=== PATIENT | female | born 2000 | race Hispanic/Latino ===

== ENCOUNTER 2022-11-07 17:06 | Emergency (ER) | payer OTHER ==
[~2022-11-07] VITALS: Ht 157.5 cm; Wt 76.6 kg
[2022-11-07 18:00] LABS: BASO % 0.4 % (0.0-1.0); EOS # 0.1 10^3/uL (0.0-0.5); EOS % 1.2 % (0.0-3.0); HEMATOCRIT 40.1 % (36.0-47.0); HEMOGLOBIN 13.3 g/dl (12.0-15.5); LYMPH # 1.3 10^3/uL (1.5-5.0); LYMPH % 16.9 % (24.0-44.0); MEAN CORPUSCULAR HEMOGLOBIN 28.1 pg (27.0-33.0); MEAN CORPUSCULAR HGB CONC 33.2 g/dl (32.0-36.5); MEAN CORPUSCULAR VOLUME 84.6 fl (80.0-96.0); MONO # 0.8 10^3/uL (0.0-0.8); NEUTROPHILS # 5.5 10^3/uL (1.5-8.5); NEUTROPHILS % 71.2 % (36.0-66.0); PLATELET COUNT, AUTOMATED 225 10^3/uL (150-450); RED BLOOD COUNT 4.74 10^6/uL (4.00-5.40); WHITE BLOOD COUNT 7.7 10^3/uL (4.0-10.0)
[2022-11-07 18:05] LABS: BLOOD UREA NITROGEN 14 MG/DL (9-23); CALCIUM LEVEL 9.1 MG/DL (8.5-10.1); CARBON DIOXIDE LEVEL 27 MMOL/L (20-31); CHLORIDE LEVEL 106 MMOL/L (98-107); CREATININE FOR GFR 0.76 MG/DL (0.55-1.30); GLOMERULAR FILTRATION RATE > 60.0 (>60); GLUCOSE, FASTING 88 MG/DL (60-100); POTASSIUM SERUM 4.1 MMOL/L (3.5-5.1); SODIUM LEVEL 137 MMOL/L (136-145)
[2022-11-07 18:21] LABS: HCG, SERUM QUANTITATIVE 2318.2 MIU/ML (<4.2)
[2022-11-07 21:31] VITALS: BP 118/70
== END 2022-11-07 21:37 | disposition home or self-care (01) ==
LOC: M ED 17:06
DX: O26.899 Other specified pregnancy related conditions, unspecified trimester (principal); R10.9 Unspecified abdominal pain; Z3A.01 Less than 8 weeks gestation of pregnancy

== ENCOUNTER → 2022-11-09 | Outpatient (CLI) | payer OTHER | LOC: M LAB 09:23 | PROVIDERS: ATTEND Physician Assistant | DX: O26.899 Other specified pregnancy related conditions, unspecified trimester (principal); R10.9 Unspecified abdominal pain ==

== ENCOUNTER 2023-01-10 18:24 | Emergency (ER) | payer OTHER ==
[~2023-01-10] VITALS: Ht 157.5 cm; Wt 73.6 kg
[2023-01-10 18:26] VITALS: BP 113/68; TEMP 99; O2SAT 97
[2023-01-10] MEDS ORDERED: MULTTAB20 PO (18:42)
[2023-01-10] MEDS ORDERED: ESSE250T PO (18:43)
[2023-01-10 19:58] LABS: BASO % 0.1 % (0.0-1.0); EOS # 0.1 10^3/uL (0.0-0.5); HEMATOCRIT 35.1 % (36.0-47.0); HEMOGLOBIN 12.2 g/dl (12.0-15.5); LYMPH # 1.3 10^3/uL (1.5-5.0); LYMPH % 17.1 % (24.0-44.0); MEAN CORPUSCULAR HEMOGLOBIN 28.8 pg (27.0-33.0); MEAN CORPUSCULAR HGB CONC 34.8 g/dl (32.0-36.5); MEAN CORPUSCULAR VOLUME 82.8 fl (80.0-96.0); MONO # 0.5 10^3/uL (0.0-0.8); MONO % 6.5 % (2.0-8.0); NEUTROPHILS # 5.7 10^3/uL (1.5-8.5); NEUTROPHILS % 74.9 % (36.0-66.0); PLATELET COUNT, AUTOMATED 230 10^3/uL (150-450); RED BLOOD COUNT 4.24 10^6/uL (4.00-5.40); WHITE BLOOD COUNT 7.6 10^3/uL (4.0-10.0)
[2023-01-10 20:15] LABS: LIPASE 23 U/L (12-53)
[2023-01-10 20:17] LABS: ALKALINE PHOSPHATASE 45 U/L (46-116); ALT/SGPT 26 U/L (7.0-40); AST/SGOT 16 U/L (<34); BILIRUBIN,DIRECT < 0.1 MG/DL (<0.4); BILIRUBIN,TOTAL 0.4 MG/DL (0.3-1.2); BLOOD UREA NITROGEN 9 MG/DL (9-23); CALCIUM LEVEL 9.2 MG/DL (8.5-10.1); CARBON DIOXIDE LEVEL 24 MMOL/L (20-31); CHLORIDE LEVEL 106 MMOL/L (98-107); CREATININE FOR GFR 0.53 MG/DL (0.55-1.30); GLOMERULAR FILTRATION RATE > 60.0 (>60); GLUCOSE, FASTING 96 MG/DL (60-100); SODIUM LEVEL 136 MMOL/L (136-145)
[2023-01-11] MEDS ORDERED: ONDA4TAB6 PO (03:28)
== END 2023-01-11 03:58 | disposition home or self-care (01) ==
LOC: M ED 18:24
DX: O26.899 Other specified pregnancy related conditions, unspecified trimester (principal); R10.9 Unspecified abdominal pain; Z3A.14 14 weeks gestation of pregnancy; Z79.899 Other long term (current) drug therapy

== ENCOUNTER 2023-03-21 10:52 | Outpatient (CLI) | payer OTHER ==
[~2023-03-21] VITALS: Ht 157.5 cm; Wt 83.1 kg
[~2023-03-21 10:52] MED LIST: ESSE250T PO; MULTTAB20 PO; ONDA4TAB6 PO
[2023-03-21 11:38] VITALS: BP 122/67
[2023-03-21] MEDS ORDERED: HOME MED LIST COMPLETE! XX SCH (11:50)
== END 2023-03-21 14:45 | disposition home or self-care (01) ==
LOC: M LDO 10:52
PROVIDERS: ATTEND Advanced Practice Midwife
DX: O26.893 Other specified pregnancy related conditions, third trimester (principal); N89.8 Other specified noninflammatory disorders of vagina; Z3A.24 24 weeks gestation of pregnancy; M25.551 Pain in right hip; M25.552 Pain in left hip; R10.2 Pelvic and perineal pain
CPT/HCPCS: 59025; 76815; G0463

== ENCOUNTER 2023-06-12 15:48 | Inpatient (IN) | payer OTHER ==
[~2023-06-12] VITALS: Ht 157.5 cm; Wt 90.4 kg
[2023-06-12] VITALS (18 sets, daily range): BP systolic 125–173; BP diastolic 67–104; O2SAT 98–99
[2023-06-12] MEDS ORDERED: NIFEdipine 10 MG CAP PO STA (16:25)
[2023-06-12] MEDS ORDERED: ACETAMINOPHEN 500 MG TAB PO ONE (16:30)
[2023-06-12] MEDS ORDERED: METOCLOPRAMIDE 10MG TAB PO ONE (16:30)
[2023-06-12] MEDS ORDERED: CALCIUM GLUCONATE 1,000 MG in D5W MINI-BAG PLUS 100 ML IV PRN (16:40)
[2023-06-12] MEDS ORDERED: OXYTOCIN DRIP 30 UNITS in IV 1 EA IV PRN ×6 (16:40)
[2023-06-12] MEDS ORDERED: CARBOPROST TROMETHAMINE 250 MCG/ML AMP IM PRN (16:40)
[2023-06-12] MEDS ORDERED: MAG Sulf (L&D) 4 GM/100 ML 4 GM in IV 1 EA IV ONE (16:40)
[2023-06-12] MEDS ORDERED: LIDOCAINE 1% MDV 20ML VIAL INFIL PRN (16:40)
[2023-06-12] MEDS ORDERED: OXYTOCIN INJ 10UNITS/ML 1ML VIAL IM PRN (16:40)
[2023-06-12] MEDS ORDERED: TRANEXAMIC ACID INJection 1,000 MG in NS 100 ML IV PRN (16:40)
[2023-06-12 16:52] LABS: HEMATOCRIT 38.8 % (36.0-47.0); HEMOGLOBIN 13.3 g/dl (12.0-15.5); MEAN CORPUSCULAR HEMOGLOBIN 29.2 pg (27.0-33.0); MEAN CORPUSCULAR HGB CONC 34.3 g/dl (32.0-36.5); MEAN CORPUSCULAR VOLUME 85.1 fl (80.0-96.0); PLATELET COUNT, AUTOMATED 194 10^3/uL (150-450); RED BLOOD COUNT 4.56 10^6/uL (4.00-5.40); WHITE BLOOD COUNT 8.1 10^3/uL (4.0-10.0)
[2023-06-12] MEDS ORDERED: AMPICILLIN SOD 2 GM in D5W MINI-BAG PLUS 100 ML IV STA (17:03)
[2023-06-12 17:04] LABS: APPEARANCE, URINE HAZY (CLEAR); BACTERIA, URINE AUTO NEGATIVE (NEGATIVE); BILIRUBIN, URINE AUTO NEGATIVE (NEGATIVE); BLOOD, URINE BLOOD NEGATIVE (NEGATIVE); COLOR, URINE YELLOW (YELLOW); GLUCOSE, URINE (UA) AUTO NEGATIVE (NEGATIVE); KETONE, URINE AUTO NEGATIVE (NEGATIVE); LEUKOCYTE ESTERASE, URINE AUTO 3+ (NEGATIVE); MUCUS, URINE SMALL (NEGATIVE); NITRITE, URINE AUTO NEGATIVE (NEGATIVE); PROTEIN, URINE AUTO NEGATIVE (NEGATIVE); RBC, URINE AUTO 1 /HPF (0-3); SPECIFIC GRAVITY URINE AUTO 1.006 (1.002-1.035); SQUAMOUS EPITHELIAL CELL UR AU 3 /HPF (0-6); UROBILINOGEN, URINE AUTO 0.2 mg/dL (0.0-2.0); WBC, URINE AUTO 6 /HPF (0-3)
[2023-06-12] MEDS: BETAMETHASONE SOLUSPAN 6MG/ML 5ML VIAL IM SCH (17:13)
[2023-06-12 17:20] LABS: ALBUMIN 2.9 G/DL (3.2-5.2); ALKALINE PHOSPHATASE 125 U/L (46-116); ALT/SGPT 15 U/L (7.0-40); AST/SGOT 17 U/L (<34); BILIRUBIN,TOTAL 0.5 MG/DL (0.3-1.2); BLOOD UREA NITROGEN 7 MG/DL (9-23); CALCIUM LEVEL 9.5 MG/DL (8.5-10.1); CARBON DIOXIDE LEVEL 24 MMOL/L (20-31); CHLORIDE LEVEL 103 MMOL/L (98-107); CREATININE FOR GFR 0.42 MG/DL (0.55-1.30); GLOMERULAR FILTRATION RATE > 60.0 (>60); GLUCOSE, FASTING 92 MG/DL (60-100); POTASSIUM SERUM 4.3 MMOL/L (3.5-5.1); SODIUM LEVEL 136 MMOL/L (136-145); TOTAL PROTEIN 6.2 G/DL (5.7-8.2)
[2023-06-12 17:25] LABS: TOTAL PROTEIN,RANDOM URINE 7.8 MG/DL (0.0-14.0)
[2023-06-12 17:30] LABS: CREATININE,RANDOM URINE 30.8 MG/DL
[2023-06-12] MEDS: LR 1,000 ML IV SCH (17:31)
[2023-06-12] MEDS: MAG Sulf (OBGYN) 20GM/500ML 20,000 MG in IV 1 EA IV SCH (17:32)
[2023-06-12] MEDS: miSOPROStol 50MCG 1/2 TABLET PO SCH ×2 (18:46→22:39)
[2023-06-12] MEDS ORDERED: diphenhydrAMINE 50MG CAP PO PRN (20:40)
[2023-06-12] MEDS: ACETAMINOPHEN 500 MG TAB PO PRN (21:03)
[2023-06-12] MEDS: METOCLOPRAMIDE 10MG TAB PO PRN (21:04)
[2023-06-12] MEDS: AMPICILLIN SOD 1 GM in D5W MINI-BAG PLUS 50 ML IV SCH (22:39)
[2023-06-13] VITALS (38 sets, daily range): BP systolic 106–174; BP diastolic 53–100; TEMP 97.3; O2SAT 97–100
[2023-06-13] MEDS: MAG Sulf (OBGYN) 20GM/500ML 20,000 MG in IV 1 EA IV SCH ×3 (02:38→22:39)
[2023-06-13] MEDS: AMPICILLIN SOD 1 GM in D5W MINI-BAG PLUS 50 ML IV SCH ×6 (02:53→22:39)
[2023-06-13] MEDS: miSOPROStol 50MCG 1/2 TABLET PO SCH ×5 (03:29→17:00)
[2023-06-13] MEDS: METOCLOPRAMIDE 10MG TAB PO PRN (03:59)
[2023-06-13] MEDS: LR 1,000 ML IV SCH ×2 (06:36→08:40)
[2023-06-13] MEDS ORDERED: LR 1,000 ML IV SCH (15:40)
[2023-06-13] MEDS ORDERED: OXYTOCIN DRIP 30 UNITS in IV 1 EA IV SCH (15:40)
[2023-06-13] MEDS: BETAMETHASONE SOLUSPAN 6MG/ML 5ML VIAL IM SCH (17:28)
[2023-06-13] MEDS ORDERED: LR 500 ML IV PRN (23:15)
[2023-06-13] MEDS ORDERED: ONDANSETRON 4MG 2ML VIAL IV PRN (23:15)
[2023-06-13] MEDS ORDERED: EPIDURAL/PCA KEYS XX PRN (23:15)
[2023-06-13] MEDS ORDERED: NALOXONE INJ 0.4MG/1ML VIAL IV PRN (23:15)
[2023-06-13] MEDS ORDERED: ePHEDrine SULFATE 25 MG/5 ML(5MG/ML) SYRINGE IVP PRN (23:15)
[2023-06-13] MEDS ORDERED: diphenhydrAMINE 50MG/ML VIAL IV PRN (23:15)
[2023-06-14] VITALS (50 sets, daily range): BP systolic 112–172; BP diastolic 52–109; O2SAT 97–100
[2023-06-14] MEDS: FENTANYL/ROPIVACAINE/NACL BAG 100 ML EPIDURAL SCH ×2 (00:07→07:43)
[2023-06-14] MEDS: AMPICILLIN SOD 1 GM in D5W MINI-BAG PLUS 50 ML IV SCH ×2 (02:44→07:49)
[2023-06-14] MEDS: LR 1,000 ML IV SCH ×4 (02:45→18:34)
[2023-06-14] MEDS ORDERED: CALCIUM CARBONATE 500 MG CHEW U/D PO PRN (03:10)
[2023-06-14] MEDS: MAG Sulf (OBGYN) 20GM/500ML 20,000 MG in IV 1 EA IV SCH ×2 (08:09→18:09)
[2023-06-14 12:44] LABS: CORD GAS ABE V -4.2; CORD GAS HCO3 V 22.7 MMOL/L; CORD GAS O2 SAT V 60.5 %; CORD GAS PCO2 V 48.1 mmHg; CORD GAS PH V 7.292 UNITS; CORD GAS PO2 V 26.8 mmHg; CORD GAS SBC V 20.2 MMOL/L; CORD GAS TCO2 V 24.2 MMOL/L
[2023-06-14 12:45] LABS: CORD GAS ABE A -4.8; CORD GAS HCO3 A 24.1 MMOL/L; CORD GAS O2 SAT A 28.5 %; CORD GAS PCO2 A 60.7 mmHg; CORD GAS PH A 7.217 UNITS; CORD GAS PO2 A 17.2 mmHg; CORD GAS SBC A 18.9 MMOL/L
[2023-06-14] MEDS ORDERED: RHOGAM 300MCG (1500IU) INJ IM SCH (12:50)
[2023-06-14] MEDS ORDERED: ANUSOL HC CREAM 30GM TOP PRN (12:50)
[2023-06-14] MEDS ORDERED: MOM 30ML SUSPENSION UDC PO PRN (12:50)
[2023-06-14] MEDS ORDERED: DOCUSATE SODIUM 100MG CAPSULE PO PRN (12:50)
[2023-06-14] MEDS ORDERED: DIBUCAINE 1% OINTMENT 30GM TOP PRN (12:50)
[2023-06-14] MEDS: IBUPROFEN 800 MG TAB PO PRN ×2 (14:19→22:10)
[2023-06-14] MEDS: ACETAMINOPHEN 500 MG TAB PO PRN (16:03)
[2023-06-15] VITALS (19 sets, daily range): BP systolic 120–171; BP diastolic 70–95; TEMP 96.9–98.3; O2SAT 97–100
[2023-06-15] MEDS: ACETAMINOPHEN 500 MG TAB PO PRN ×2 (02:06→12:12)
[2023-06-15] MEDS: MAG Sulf (OBGYN) 20GM/500ML 20,000 MG in IV 1 EA IV SCH (03:01)
[2023-06-15] MEDS: LR 1,000 ML IV SCH ×2 (06:21→08:40)
[2023-06-15] MEDS: IBUPROFEN 800 MG TAB PO PRN ×2 (09:01→18:17)
[2023-06-15] MEDS: PRENATAL VITAMINS CHEWABLE TABLET PO SCH (09:01)
[2023-06-15] MEDS: LABETALOL 200 MG TAB PO SCH (22:24)
[2023-06-16] VITALS (7 sets, daily range): BP systolic 133–151; BP diastolic 77–93; O2SAT 96–100
[2023-06-16] MEDS ORDERED: MEASLES,MUMPS,RUBELLA VACCINE INJ (MMR-II) SC.IMMUN ONE (09:00)
[2023-06-16] MEDS: PRENATAL VITAMINS CHEWABLE TABLET PO SCH (09:00)
[2023-06-16] MEDS: LABETALOL 200 MG TAB PO SCH ×2 (09:00→20:53)
[2023-06-16] MEDS: IBUPROFEN 800 MG TAB PO PRN ×2 (09:00→20:53)
[2023-06-16 11:17] LABS: BASO % 0.2 % (0.0-1.0); EOS # 0.2 10^3/uL (0.0-0.5); EOS % 1.5 % (0.0-3.0); HEMATOCRIT 32.3 % (36.0-47.0); HEMOGLOBIN 10.8 g/dl (12.0-15.5); LYMPH # 1.5 10^3/uL (1.5-5.0); LYMPH % 13.6 % (24.0-44.0); MEAN CORPUSCULAR HEMOGLOBIN 29.1 pg (27.0-33.0); MEAN CORPUSCULAR HGB CONC 33.4 g/dl (32.0-36.5); MEAN CORPUSCULAR VOLUME 87.1 fl (80.0-96.0); MONO # 0.9 10^3/uL (0.0-0.8); MONO % 8.3 % (2.0-8.0); NEUTROPHILS # 8.3 10^3/uL (1.5-8.5); NEUTROPHILS % 75.9 % (36.0-66.0); PLATELET COUNT, AUTOMATED 188 10^3/uL (150-450); RED BLOOD COUNT 3.71 10^6/uL (4.00-5.40)
[2023-06-16 11:36] LABS: ALBUMIN 2.6 G/DL (3.2-5.2); ALKALINE PHOSPHATASE 90 U/L (46-116); ALT/SGPT 16 U/L (7.0-40); AST/SGOT 20 U/L (<34); BILIRUBIN,TOTAL 0.3 MG/DL (0.3-1.2); BLOOD UREA NITROGEN 15 MG/DL (9-23); CALCIUM LEVEL 9.2 MG/DL (8.5-10.1); CARBON DIOXIDE LEVEL 29 MMOL/L (20-31); CHLORIDE LEVEL 104 MMOL/L (98-107); GLOMERULAR FILTRATION RATE > 60.0 (>60); GLUCOSE, FASTING 97 MG/DL (60-100); SODIUM LEVEL 140 MMOL/L (136-145); TOTAL PROTEIN 5.6 G/DL (5.7-8.2)
[2023-06-16] MEDS: ACETAMINOPHEN 500 MG TAB PO PRN (17:28)
[2023-06-17 02:00] VITALS: BP 139/80; O2SAT 99
[2023-06-17] MEDS: ACETAMINOPHEN 500 MG TAB PO PRN (03:17)
[2023-06-17 06:00] VITALS: BP 141/75; O2SAT 97
[2023-06-17 08:00] VITALS: BP 140/84
[2023-06-17] MEDS: PRENATAL VITAMINS CHEWABLE TABLET PO SCH (08:04)
[2023-06-17] MEDS: IBUPROFEN 800 MG TAB PO PRN (08:06)
[2023-06-17 08:07] VITALS: BP 140/84
[2023-06-17] MEDS: LABETALOL 200 MG TAB PO SCH (08:07)
[2023-06-17 10:00] VITALS: BP 131/71; O2SAT 97
[2023-06-17 14:00] VITALS: BP 130/87; O2SAT 96
== END 2023-06-17 10:40 | disposition home or self-care (01) | DRG 807 ==
LOC: M LDO 15:48 → M LDI 16:31 → M OBS 06-15 14:01
PROVIDERS: ADMIT Obstetrics & Gynecology; ATTEND Obstetrics & Gynecology
PROC: 3E033VJ Introduction of Other Hormone into Peripheral Vein, Percutaneous Approach (ICD-10-PCS; 2023-06-12)
PROC: 10E0XZZ Delivery of Products of Conception, External Approach (ICD-10-PCS; principal; 2023-06-14)
PROC: 0HQ9XZZ Repair Perineum Skin, External Approach (ICD-10-PCS; 2023-06-14)
DX: O14.14 Severe pre-eclampsia complicating childbirth (principal); Z37.0 Single live birth; Z3A.36 36 weeks gestation of pregnancy; O76 Abnormality in fetal heart rate and rhythm complicating labor and delivery; O70.0 First degree perineal laceration during delivery; O32.6XX0 Maternal care for compound presentation, not applicable or unspecified

== ENCOUNTER 2023-10-11 01:18 | Emergency (ER) | payer OTHER ==
[~2023-10-11] VITALS: Ht 157.5 cm; Wt 79.1 kg
[2023-10-11] MEDS: ACETAMINOPHEN TAB 650MG DOSE (2X325MG) PO ONE (06:43)
[2023-10-11] MEDS: NS 1,000 ML IV ONE (06:43)
[2023-10-11] MEDS: ONDANSETRON 4MG 2ML VIAL IV ONE (06:43)
[2023-10-11 07:03] LABS: BASO % 0.1 % (0.0-1.0); EOS % 0.1 % (0.0-3.0); HEMATOCRIT 42.9 % (36.0-47.0); HEMOGLOBIN 14.9 g/dl (12.0-15.5); LYMPH # 0.3 10^3/uL (1.5-5.0); LYMPH % 3.1 % (24.0-44.0); MEAN CORPUSCULAR HEMOGLOBIN 28.8 pg (27.0-33.0); MEAN CORPUSCULAR HGB CONC 34.7 g/dl (32.0-36.5); MONO # 0.4 10^3/uL (0.0-0.8); MONO % 4.2 % (2.0-8.0); NEUTROPHILS # 7.6 10^3/uL (1.5-8.5); NEUTROPHILS % 92.3 % (36.0-66.0); PLATELET COUNT, AUTOMATED 266 10^3/uL (150-450); RED BLOOD COUNT 5.17 10^6/uL (4.00-5.40); WHITE BLOOD COUNT 8.3 10^3/uL (4.0-10.0)
[2023-10-11 07:17] LABS: LIPASE 20 U/L (12-53)
[2023-10-11 07:20] LABS: ALBUMIN 4.1 G/DL (3.2-5.2); ALKALINE PHOSPHATASE 72 U/L (46-116); ALT/SGPT 23 U/L (7.0-40); AST/SGOT 15 U/L (<34); BILIRUBIN,DIRECT 0.4 MG/DL (<0.4); BILIRUBIN,TOTAL 1.9 MG/DL (0.3-1.2); BLOOD UREA NITROGEN 20 MG/DL (9-23); CALCIUM LEVEL 9.1 MG/DL (8.5-10.1); CARBON DIOXIDE LEVEL 26 MMOL/L (20-31); CHLORIDE LEVEL 101 MMOL/L (98-107); CREATININE FOR GFR 0.57 MG/DL (0.55-1.30); GLOMERULAR FILTRATION RATE > 60.0 (>60); GLUCOSE, FASTING 124 MG/DL (60-100); SODIUM LEVEL 137 MMOL/L (136-145); TOTAL PROTEIN 7.2 G/DL (5.7-8.2)
[2023-10-11 07:22] LABS: HCG, SERUM QUALITATIVE NEGATIVE (NEGATIVE)
[2023-10-11] MEDS ORDERED: ONDA4TAB6 PO (08:00)
[2023-10-11 08:08] VITALS: TEMP 100.7; O2SAT 99
[2023-10-11 08:11] VITALS: BP 95/57
== END 2023-10-11 08:17 | disposition home or self-care (01) ==
LOC: M ED 01:18
DX: R11.2 Nausea with vomiting, unspecified (principal); R19.7 Diarrhea, unspecified; Z20.9 Contact with and (suspected) exposure to unspecified communicable disease; Z79.899 Other long term (current) drug therapy
CPT/HCPCS: 80048; 80076; 83690; 84703; 85025; 87486; 87581; 87633; 87798; 96361; 96374; 99284; J2405